=== PATIENT | female | born 2005 ===

== ENCOUNTER 2024-07-05 20:15 | Emergency (ER) | payer BC ==
[2024-07-05] MEDS: LORazepam 2 MG/ML SDV IM ONE (20:45)
[2024-07-05] MEDS: Ketorolac 30 MG/ML SDV IM ONE (20:45)
[2024-07-05 21:18] VITALS: BP 136/78; PULSE 86
== END 2024-07-05 21:02 | disposition home or self-care (01) ==
LOC: FB.ED 20:15
DX: M26.601 Right temporomandibular joint disorder, unspecified (principal); F41.1 Generalized anxiety disorder; Z79.899 Other long term (current) drug therapy
CPT/HCPCS: 96372; 99283; J1885; J2060